=== PATIENT | female | born 1950 | race Hispanic/Latino ===

== ENCOUNTER 2017-03-02 07:06 | Day surgery (SDC) | payer OTHER ==
[~2017-03-02 07:06] MED LIST: ANCEF/STERILE WATER 2 GM/20 ML 2 GM/20 ML SYRINGE IV NR; NACL 0.9% 1000 ML 1,000 ML IV SCH
[2017-03-02] MEDS ORDERED: NACL 0.9% 500 ML 500 ML IV SCH (08:00)
[2017-03-02] MEDS ORDERED: HEPARIN 10,000 UNITS/10 ML ONE (08:03)
[2017-03-02] MEDS ORDERED: HEPARIN/NS 5000 UNIT/500ML(CATH LAB) 1,000 ML IR ONE (08:03)
[2017-03-02] MEDS ORDERED: ANCEF/STERILE WATER 2 GM/20 ML 2 GM/20 ML SYRINGE IV ONE (08:04)
[2017-03-02] MEDS ORDERED: NACL 0.9% 500 ML 500 ML ONE (08:19)
[2017-03-02 08:54] LABS: Anion Gap 19 mmol/L; BUN/Creatinine Ratio 24.28; Blood Urea Nitrogen 17 mg/dL (7-17); Calcium 9.7 mg/dL (8.4-10.2); Carbon Dioxide 22 mmol/L (22-30); Chloride 101.1 mmol/L (98-107); Glucose 91 mg/dL (65-100); Potassium 4.5 mmol/L (3.6-5.0); Sodium 138 mmol/L (137-145)
[2017-03-02] MEDS: SUBLIMAZE ONE ×3 (09:05→09:26)
[2017-03-02] MEDS: VERSED ONE ×2 (09:05→09:08)
[2017-03-02] MEDS: XYLOCAINE 2% INFILTRATI ONE ×2 (09:07→09:09)
[2017-03-02 09:26] LABS: Hematocrit 35.2 % (30.3-42.9); Hemoglobin 11.5 gm/dl (10.1-14.3); Mean Corpuscular HGB Conc 33 % (30-34); Mean Corpuscular Hemoglobin 29 pg (28-32); Mean Corpuscular Volume 90 fl (79-97); Platelet Count 200 K/mm3 (140-440); Red Blood Count 3.91 M/mm3 (3.65-5.03)
[2017-03-02 09:39] LABS: INR 1.2 (0.87-1.13)
[2017-03-02 09:40] LABS: Partial Thromboplastin Time 41.6 Sec. (24.2-36.6)
[2017-03-02] MEDS ORDERED: NITROGLYCERIN SYRINGE 3 ML ONE (09:50)
--- NOTE | 2017-03-02 10:31 | Operative Report ---
Operative Report Operative Report: Date of procedure: 03/02/2017 Pre-operative diagnosis: Poorly healing right foot ulcer/peripheral vascular disease Post-operative diagnosis: Same Procedure name(s): 1. Ultrasound-guided axis of the left common femoral artery. 2. Placement of the catheter into the aorta. 3. Aortogram. 4. Contralateral cannulation of right superficial femoral artery. 5. Right leg angiogram. 6. Selective cannulation of the right anterior tibial artery. 7. Direct injection of the right anterior tibial artery. 8. Anterior tibial artery atherectomy and balloon angioplasty using small silverHawk device and 3 x 40 angioplasty balloon. 9. Direct injection into the dorsalis pedis artery and plantar arch evaluation. 10. Radiologic supervision and interpretation. 11. Angiogram of the left common femoral artery. 12. Closure of the left common femoral artery with 6 [place] Angio-Seal. Surgeon: Miguel Cannon MD, RPVI Retail Mortgage Banker: None Anesthesia: Local with IV sedation. Findings 1. Patent left common femoral artery. 2. Patent aorta and iliac vessels bilaterally without significant stenosis. 3. Patent right common femoral, superficial femoral popliteal and peroneal arteries without significant stenosis. 4. High-grade proximal right tibial artery stenosis. 5. Complete resolution of the stenosis after the atherectomy and balloon angioplasty. 6. Bounding palpable right dorsalis pedis pulse at the end of the procedure. 7. Nonvisualization of the posterior tibial artery throughout its entire course. 8. Successful closure of the left common femoral artery with excellent hemostasis Specimens: None EBL: Minimal IV fluids: 50 mL Contrast: 60 mL Disposition: The recovery Indications: Peripheral vascular disease with poorly healing right foot. Procedure: Patient was brought to the [facility] laid on the table in supine position. After adequate sedation was achieved both groins were prepped in usual sterile fashion. The left common femoral artery was visualized with an ultrasound and the skin over it was infiltrated with 1% lidocaine. A micropuncture needle was inserted into the left common femoral artery under ultrasound guidance. The micropuncture wire was advanced into the left common femoral artery without resistance under fluoroscopic guidance. The needle was removed and the micropuncture sheath was placed. The wire was exchanged for a Garrett wire. The 5 [place] sheath was placed into the left common femoral artery. The SOS omni flush catheter was advanced into the aorta. Aortogram was performed. The contralateral cannulation was achieved using a Garrett wire and the SOS omni flush catheter. Tip of the catheter was brought to the proximal superficial femoral artery and the angiogram of the leg was performed. The infrapopliteal vessels were not well visualized. So the wire was advanced down into the popliteal artery followed by vertebral catheter. The infrapopliteal angiogram was performed and it appeared that there was a stenosis in the anterior tibial artery. The anterior tibial artery was cannulated using the vertebral catheter in the Glidewire. Direct injection of the contrast was performed into the anterior tibial artery. A significant stenosis was visualized in the proximal portion of the anterior tibial artery. The catheter was removed over the Glidewire and the 6 x 90 up and over sheath was placed with the tip in the distal popliteal artery. The wire was exchanged to a 0.0014 wire through the vertebral catheter with a tip of the wire down into the distal anterior tibial artery. Patient received 3000 units of intravenous heparin. After 3 minutes and atherectomy was performed using a silverHawk device. It was further dilated using a 3 x 40 angioplasty balloon. The resulting angiogram confirmed complete resolution of the stenosis. A 0.0014 catheter was advanced into the distal anterior tibial artery and angiogram of the foot was performed. It showed patent dorsalis pedis artery with intact plantar arch no evidence of stenosis or embolization. The catheter was removed. The sheath was exchanged to a short 6 [place] sheath. The angiogram of the left common femoral artery show the patient good candidate for an Angio-Seal. 6 [place] Angio-Seal was used to close the arteriotomy successfully. Postprocedure patient developed a bounding dorsalis pedis pulse. She tolerated procedure well and was transferred to the recovery room.
--- NOTE | 2017-03-02 10:38 | Short Stay Summary ---
Short Stay Documentation Date of service: 03/02/17 - History H&P: obtained from office - Allergies and Medications Current Medications: Allergies No Known Allergies Allergy (Verified 03/02/17 07:19) Home Medications Medication Instructions Recorded Confirmed Last Taken Type LORazepam [LORazepam] 0.5 mg PO BID PRN 03/02/17 03/02/17 03/02/17 History 0.5mg Memantine HCl [Namenda Xr] 28 mg PO DAILY 03/02/17 03/02/17 03/01/17 History Rivastigmine [Rivastigmine] 13.3 mg TRANSDERMA DAILY 03/02/17 03/02/17 03/01/17 History levETIRAcetam [Levetiracetam] 750 mg PO BID 03/02/17 03/02/17 03/02/17 History Active Medications Cefazolin Sodium (Ancef/Sterile Water 2 Gm/20 Ml) 2 gm in 20 mls @ 80 mls/hr IV PREOP NR PRN Reason: Protocol Stop: 03/02/17 23:35 Sodium Chloride (Nacl 0.9% 500 Ml) 500 mls @ 50 mls/hr IV DIRECT GABRIEL - Brief post op/procedure progress note Procedure: Pre-operative diagnosis: Poorly healing right foot ulcer/peripheral vascular disease Post-operative diagnosis: Same Procedure name(s): 1. Ultrasound-guided axis of the left common femoral artery. 2. Placement of the catheter into the aorta. 3. Aortogram. 4. Contralateral cannulation of right superficial femoral artery. 5. Right leg angiogram. 6. Selective cannulation of the right anterior tibial artery. 7. Direct injection of the right anterior tibial artery. 8. Anterior tibial artery atherectomy and balloon angioplasty using small silverHawk device and 3 x 40 angioplasty balloon. 9. Direct injection into the dorsalis pedis artery and plantar arch evaluation. 10. Radiologic supervision and interpretation. 11. Angiogram of the left common femoral artery. 12. Closure of the left common femoral artery with 6 [place] Angio-Seal. Surgeon: Miguel Cannon MD, R[facility] [employer] Operator: None Anesthesia: Local with IV sedation. Findings 1. Patent left common femoral artery. 2. Patent aorta and iliac vessels bilaterally without significant stenosis. 3. Patent right common femoral, superficial femoral popliteal and peroneal arteries without significant stenosis. 4. High-grade proximal right tibial artery stenosis. 5. Complete resolution of the stenosis after the atherectomy and balloon angioplasty. 6. Bounding palpable right dorsalis pedis pulse at the end of the procedure. 7. Nonvisualization of the posterior tibial artery throughout its entire course. 8. Successful closure of the left common femoral artery with excellent hemostasis Specimens: None EBL: Minimal IV fluids: 50 mL Contrast: 60 mL Disposition: The recovery - Disposition Condition at discharge: Good Disposition: DISCHARGED TO HOME OR SELFCARE Short Stay Discharge Plan Diet: regular Additional Instructions: Follow up with Dr. Cannon 2 weeks Follow up with: JARED RICE DO [Primary Care Provider] - 7 Days
[2017-03-02 13:25] VITALS: BP 101/58
--- NOTE | 2017-03-03 11:19 | Vascular Lab Report ---
MISCELLANEOUS VESSEL IDENTIFICATION: COMMENTS ON THE SCAN: The left common femoral artery was identified and under real-time ultrasound guidance was cannulated. IMPRESSION: Successful ultrasound guided arterial cannulation..
== END 2017-03-02 13:50 | disposition home or self-care (01) ==
LOC: OPU 07:06
PROVIDERS: ATTEND Surgery Vascular Surgery
DX: I70.234 Atherosclerosis of native arteries of right leg with ulceration of heel and midfoot (principal); F03.90 Unspecified dementia, unspecified severity, without behavioral disturbance, psychotic disturbance, mood disturbance, and anxiety
CPT/HCPCS: 36415; 37229; 75625; 75710; 75774; 76937; 80048; 85027; 85610; 85730; C1714; C1725; C1760; C1769; C1887; J0690; J1644; J2250; J3010; J7040; Q9967